=== PATIENT | male | born 2000 | race Caucasian/White ===

== ENCOUNTER 2021-02-24 12:16 | Outpatient (CLI) | payer BC ==
[2021-02-24] MEDS ORDERED: Sodium Bicarbonate 2.5 MEQ/5 ML VIAL ONE (12:53)
[2021-02-24] MEDS ORDERED: Lidocaine 1% PF 5 ML VIAL ONE ×2 (12:53→12:54)
[2021-02-24] MEDS ORDERED: EPINEPHrine 1 MG/ML AMP ONE (12:54)
[2021-02-24 13:19] VITALS: BP 123/78; TEMP 98.6
== END 2021-02-24 14:50 | disposition home or self-care (01) ==
LOC: CSHMRI 12:16
PROVIDERS: ATTEND Orthopaedic Surgery
DX: S43.432A Superior glenoid labrum lesion of left shoulder, initial encounter (principal); M25.312 Other instability, left shoulder; S43.492A Other sprain of left shoulder joint, initial encounter; S42.292A Other displaced fracture of upper end of left humerus, initial encounter for closed fracture
CPT/HCPCS: 23350; 70250; J0171